=== PATIENT | male | born 1950 | race African-American/Black ===

== ENCOUNTER → 2016-06-30 | Outpatient (CLI) | payer MEDICARE, OTHER | END | disposition home or self-care (01) | LOC: PCVCCLINIC 15:57 | PROVIDERS: ATTEND Internal Medicine Cardiovascular Disease | DX: I10 Essential (primary) hypertension (principal); E78.5 Hyperlipidemia, unspecified; I48.0 Paroxysmal atrial fibrillation; M19.90 Unspecified osteoarthritis, unspecified site | CPT/HCPCS: 80061; 93005; G0463 ==

== ENCOUNTER → 2016-07-04 | Outpatient (CLI) | payer MEDICARE, OTHER | END | disposition home or self-care (01) | LOC: PCVCIMAG 09:05 | PROVIDERS: ATTEND Internal Medicine Cardiovascular Disease | DX: I48.0 Paroxysmal atrial fibrillation (principal); I10 Essential (primary) hypertension; R53.83 Other fatigue | CPT/HCPCS: 93306 ==

== ENCOUNTER → 2016-12-31 | Outpatient (CLI) | payer MEDICARE, OTHER | END | disposition home or self-care (01) | LOC: PCVCCLINIC 15:01 | PROVIDERS: ATTEND Internal Medicine Cardiovascular Disease | DX: I48.0 Paroxysmal atrial fibrillation (principal); E78.4 Other hyperlipidemia; I10 Essential (primary) hypertension; J45.30 Mild persistent asthma, uncomplicated; G47.30 Sleep apnea, unspecified; R94.31 Abnormal electrocardiogram [ECG] [EKG]; Z87.891 Personal history of nicotine dependence; Z79.899 Other long term (current) drug therapy | CPT/HCPCS: 80061; 93005; G0463 ==

== ENCOUNTER → 2017-02-11 | Outpatient (CLI) | payer MEDICARE, OTHER ==
--- NOTE | 2017-02-11 17:18 | PCVCIMAG ---
APPROVED REPORT Study performed: 02/11/2017 13:00:35 EXAM: Comprehensive 2D, Doppler, and color-flow Echocardiogram Patient Location: Echo lab Room #: 2 BSA: 2.34 HR: 140 bpmBP: 140/100 mmHg Rhythm: Atrial Fibrillation Other Information Study Quality: Good Indications Atrial Fibrillation Dyspnea Fatigue 2D Dimensions LVEF(%): 17.47 (>50%) IVSd: 12.41 (7-11mm)LVOT Diam: 21.44 (18-24mm) LVDd: 57.86 mm PWd: 12.69 (7-11mm)Ascending Ao: 25.83 (22-36mm) LVDs: 53.23 (25-40mm) Left Atrium: 50.85 (27-40mm) Aortic Root: 27.65 mm LV Single Plane 4CH: 24.13 % LV Single Plane 2CH: 22.23 %Bell's LVEF: 23.18 % Biplane EF: 21.4 % Volumes Left Atrial Volume (Systole) Single Plane 4CH: 86.62 mLSingle Plane 2CH: 54.73 mL Biplane LA Volume: 77.00 mLLA ESV Index: 33.00 mL/m2 Aortic Valve LVOT Max P.09 mmHg LVOT Max V: 0.82 m/s Mitral Valve MV E Max Cheko.: 0.57 m/s Pulmonary Valve PV Peak Cheko.: 0.74 m/sPV Peak Gr.: 2.17 mmHg Tricuspid Valve TR Peak Cheko.: 2.59 m/s TR Peak Gr.: 26.81 mmHg TV Vmax: 0.77 m/sPA Pressure: 42.00 mmHg Left Ventricle Left ventricle is mildly dilated. Global hypokinesis. Rapid heart rate with variable LV hypokinesis. Mild concentric left ventricular hypertrophy. Left ventricular ejection fraction is moderate to severely decreased. LVEF is 25-30% with a heart rate of 140. The EF appears improved in the few times the heart rate drops to the low 100s.. This study is not technically sufficient to allow evaluation of the LV diastolic function due to atrial fibrillation. Right Ventricle The right ventricle is normal size. The right ventricular systolic function is normal. Atria Left atrium is mildly dilated. Right atrium is moderately dilated. Aortic Valve The aortic valve is normal in structure. No aortic regurgitation is present. There is no aortic valvular stenosis. Mitral Valve The mitral valve is normal in structure. Moderate to severe mitral regurgitation No evidence of mitral valve stenosis. Tricuspid Valve The tricuspid valve is normal in structure. Moderate to severe tricuspid regurgitation. Pulmonic Valve The pulmonary valve is normal in structure. There is no pulmonic valvular regurgitation. Great Vessels The aortic root is normal in size. Aortic arch is not well visualized. IVC is dilated and collapses <50% with inspiration. Pericardium There is no pericardial effusion. There is no pleural effusion. <Conclusion> Left ventricle is mildly dilated. Mild concentric left ventricular hypertrophy. LVEF is 25-30% with a heart rate of 140. The EF appears improved in the few times the heart rate drops to the low 100s.. This study is not technically sufficient to allow evaluation of the LV diastolic function due to atrial fibrillation. The right ventricle is normal size. Left atrium is mildly dilated. Right atrium is moderately dilated. There is no aortic valvular stenosis. Moderate to severe mitral regurgitation Moderate to severe tricuspid regurgitation. There is no pericardial effusion.
== END | disposition home or self-care (01) ==
LOC: PCVCIMAG 12:48
PROVIDERS: ATTEND Internal Medicine Cardiovascular Disease
DX: I08.1 Rheumatic disorders of both mitral and tricuspid valves (principal); I48.91 Unspecified atrial fibrillation; I27.20 Pulmonary hypertension, unspecified; I11.0 Hypertensive heart disease with heart failure; I50.21 Acute systolic (congestive) heart failure; I42.9 Cardiomyopathy, unspecified; E78.00 Pure hypercholesterolemia, unspecified; R06.02 Shortness of breath; G47.30 Sleep apnea, unspecified; Z87.891 Personal history of nicotine dependence; Z79.899 Other long term (current) drug therapy
CPT/HCPCS: 93005; 93306; G0463

== ENCOUNTER → 2017-02-23 | Outpatient (CLI) | payer MEDICARE, OTHER | END | disposition home or self-care (01) | LOC: PCVCCLINIC 13:22 | PROVIDERS: ATTEND Internal Medicine Cardiovascular Disease | DX: I48.0 Paroxysmal atrial fibrillation (principal); I42.9 Cardiomyopathy, unspecified; I27.20 Pulmonary hypertension, unspecified; I11.0 Hypertensive heart disease with heart failure; I50.42 Chronic combined systolic (congestive) and diastolic (congestive) heart failure; E78.00 Pure hypercholesterolemia, unspecified; G47.30 Sleep apnea, unspecified; Z87.891 Personal history of nicotine dependence; Z79.899 Other long term (current) drug therapy | CPT/HCPCS: 36415; 93005; G0463 ==

== ENCOUNTER → 2017-05-11 | Outpatient (CLI) | payer MEDICARE, OTHER | END | disposition home or self-care (01) | LOC: PCVCIMAG 09:11 | DX: I08.1 Rheumatic disorders of both mitral and tricuspid valves (principal); I48.0 Paroxysmal atrial fibrillation; I11.0 Hypertensive heart disease with heart failure; I50.9 Heart failure, unspecified; E78.00 Pure hypercholesterolemia, unspecified; G47.30 Sleep apnea, unspecified; Z87.891 Personal history of nicotine dependence; Z79.899 Other long term (current) drug therapy | CPT/HCPCS: 80061; 93005; 93306; G0463 ==

== ENCOUNTER → 2017-11-18 | Outpatient (CLI) | payer MEDICARE, OTHER | END | disposition home or self-care (01) | LOC: PCVCCLINIC 10:30 | PROVIDERS: ATTEND Internal Medicine | DX: I48.0 Paroxysmal atrial fibrillation (principal); I10 Essential (primary) hypertension; E78.00 Pure hypercholesterolemia, unspecified; G47.30 Sleep apnea, unspecified; I42.9 Cardiomyopathy, unspecified; Z86.718 Personal history of other venous thrombosis and embolism; Z87.891 Personal history of nicotine dependence; Z79.899 Other long term (current) drug therapy | CPT/HCPCS: 80061; 93005; G0463 ==

== ENCOUNTER → 2019-02-01 | Outpatient (CLI) | payer MEDICARE, OTHER ==
--- NOTE | 2019-02-02 12:17 | PCVCIMAG ---
APPROVED REPORT Study performed: 02/01/2019 14:43:00 EXAM: Comprehensive 2D, Doppler, and color-flow Echocardiogram Patient Location: Echo lab Room #: 2Status: routine BSA: 2.36 HR: 94 bpmBP: 128/84 mmHg Rhythm: Atrial Fibrillation Other Information Study Quality: Adequate Risk Factors: Cardiac Risk Factors: Hyperlipidemia Indications Atrial Fibrillation 2D Dimensions IVSd: 9.81 (7-11mm)LVOT Diam: 21.72 (18-24mm) LVDd: 58.74 mm PWd: 10.95 (7-11mm)Ascending Ao: 33.48 (22-36mm) LVDs: 42.86 (25-40mm) Left Atrium: 42.22 (27-40mm) Aortic Root: 26.02 mm LV Single Plane 4CH: 56.31 % LV Single Plane 2CH: 49.78 % Biplane EF: 54.0 % Volumes Left Atrial Volume (Systole) Single Plane 4CH: 67.86 mLSingle Plane 2CH: 50.74 mL Biplane LA Volume: 60.00 mLLA ESV Index: 26.00 mL/m2 Aortic Valve AoV Peak Cheko.: 1.14 m/s AO Peak Gr.: 5.18 mmHgLVOT Max P.74 mmHg LVOT Max V: 0.62 m/s ZURI Vmax: 2.02 cm2 Mitral Valve MV E Max Cheko.: 0.74 m/s MV PHT: 36.02 ms MVA (PHT): 6.11 cm2 IVRT: 86.51 ms TDI E/Lateral E': 6.17E/Medial E': 7.40 Medial E' Cheko.: 0.10 m/s Lateral E' Cheko.: 0.12 m/s Pulmonary Valve PV Peak Cheko.: 1.17 m/sPV Peak Gr.: 5.53 mmHg Tricuspid Valve TR Peak Cheko.: 2.03 m/s TR Peak Gr.: 16.56 mmHg TV Vmax: 0.59 m/sPA Pressure: 24.00 mmHg Left Ventricle Left ventricle is mildly dilated. There is normal LV segmental wall motion. Borderline concentric left ventricular hypertrophy. Left ventricular systolic function is normal. The left ventricular ejection fraction is within the normal range. LVEF is 50-55%. This study is not technically sufficient to allow evaluation of the LV diastolic function due to atrial fibrillation. Right Ventricle The right ventricle is normal size. The right ventricular systolic function is normal. Atria The left atrium size is normal. The right atrium size is normal. Aortic Valve Aortic valve is trileaflet. The aortic valve is normal in structure and function. No aortic regurgitation is present. There is no aortic valvular stenosis. Mitral Valve The mitral valve is normal in structure. There is no mitral valve regurgitation noted. No evidence of mitral valve stenosis. Tricuspid Valve The tricuspid valve is normal in structure. Trace to mild tricuspid regurgitation. No pulmonary hypertension. Pulmonic Valve The pulmonary valve is normal in structure. There is no pulmonic valvular regurgitation. Great Vessels The aortic root is normal in size. The ascending aorta is normal in size. Aortic arch is normal in caliber. IVC is normal in size and collapses >50% with inspiration. Pericardium There is no pericardial effusion. There is no pleural effusion. <Conclusion> Left ventricle is mildly dilated. Borderline concentric left ventricular hypertrophy. LVEF is 50-55%. The right ventricle is normal size. The left atrium size is normal. Aortic valve is trileaflet. The aortic valve is normal in structure and function. There is no mitral valve regurgitation noted. Trace to mild tricuspid regurgitation. No pulmonary hypertension. The aortic root is normal in size. There is no pericardial effusion.
== END | disposition home or self-care (01) ==
LOC: PCVCIMAG 14:40
PROVIDERS: ATTEND Internal Medicine Cardiovascular Disease
DX: I48.0 Paroxysmal atrial fibrillation (principal); I36.1 Nonrheumatic tricuspid (valve) insufficiency; E78.00 Pure hypercholesterolemia, unspecified; D68.59 Other primary thrombophilia; R07.81 Pleurodynia; I11.9 Hypertensive heart disease without heart failure; M19.90 Unspecified osteoarthritis, unspecified site; Z86.718 Personal history of other venous thrombosis and embolism; Z87.891 Personal history of nicotine dependence
CPT/HCPCS: 36415; 80061; 93005; 93306; G0463